=== PATIENT | female | born 1955 | race Caucasian/White ===

== ENCOUNTER → 2019-09-29 | Outpatient (CLI) | payer BC ==
--- NOTE | 2019-09-30 16:00 | RAD ---
DATE: 09/29/2019 10:37 AM EXAM: MAMMO IVANA SCREENING BILATERAL HISTORY: Screening COMPARISON: 04/27/2018 Bilateral CC and MLO views of the breasts were performed. Bilateral breast tomosynthesis was performed in CC and MLO projections. This study was interpreted with the benefit of Computerized Aided Detection (CAD). FINDINGS: Breast Density: SCATTERED The breast parenchyma shows scattered fibroglandular densities. Breast parenchyma level B No suspicious masses, microcalcifications or architectural distortion is present to suggest malignancy in either breast. The visualized axillae are unremarkable. IMPRESSION: No mammographic evidence of malignancy. BI-RADS CATEGORY: 1 NEGATIVE RECOMMENDED FOLLOW-UP: 12M 12 MONTH FOLLOW-UP Annual screening mammography is recommended, unless clinically indicated sooner based on symptoms or change in physical exam. PQRS compliance statement: Patient information was entered into a reminder system with a target due date for the next mammogram. Mammography is a sensitive method for finding small breast cancers, but it does not detect them all and is not a substitute for careful clinical examination. A negative mammogram does not negate a clinically suspicious finding and should not result in delay in biopsying a clinically suspicious abnormality. "Our facility is accredited by the [employer] Mammography Program."
== END | disposition home or self-care (01) ==
LOC: MAMMO 10:23
PROVIDERS: ATTEND Physician Assistant
DX: Z12.31 Encounter for screening mammogram for malignant neoplasm of breast (principal)
CPT/HCPCS: 77063; 77067

== ENCOUNTER 2020-01-30 19:37 | Emergency (ER) | payer MEDICARE ==
[~2020-01-30] VITALS: Ht 345.4 cm; Wt 84.5 kg
[2020-01-30] MEDS ORDERED: KETOROLAC 60 MG/2 ML VIAL. IM ONE (20:00)
--- NOTE | 2020-01-30 20:26 | PHYS DOC ---
Past History Past Medical History: Pneumonia Past Surgical History: Hysterectomy, Knee Replacement Alcohol Use: Rarely Adult General Chief Complaint Chief Complaint: RIB PAIN HPI HPI Patient is a 64-year-old female presents emergency department today with complaints of right lateral rib pain on the lower side after coughing very hard. Patient states that she was diagnosed with Covid 19 virus this past Friday and also diagnosed with bilateral lower lobe pneumonia in which her primary care physician started her on both azithromycin and Augmentin, patient states she finished her azithromycin just yesterday and has 2 more days left on her Augmentin antibiotic regimen. Patient states that when she coughed she felt an immediate pop on the right side of her lower ribs and states that when she coughs now she feels a 10/10 1-10 pain scale otherwise she is feeling a constant 5/10 1-10 pain scale. Patient states she has not taken anything for this pain, patient denies any other ailments, chest pains, shortness of breath, chest palpitations, fevers or chills, nausea, vomiting, or diarrhea or constipation. Denies any diaphoretic episodes or feelings of dizziness. Patient denies any other physical ailments or physical problems. Review of Systems Review of Systems 14 body systems of review of systems have been reviewed. See HPI for pertinent positives and negative responses, otherwise all other systems are negative, nonpertinent or noncontributory. Current Medications Current Medications Patient states she takes a statin but does not know the dose, states that she takes bupropion and paroxetine for depression, and tramadol for chronic knee pains. Current Medications Medications (Trade) Dose Ordered Sig/Pastor Start Time Stop Time Status Last Admin Dose Admin Ketorolac Tromethamine (Toradol Im) 60 mg 1X ONCE 01/30/20 20:00 01/30/20 20:09 DC 01/30/20 20:00 60 MG Allergies Allergies Allergies Coded Allergies Type Severity Reaction Last Updated Verified codeine Allergy Unknown Nausea 01/30/20 Yes Physical Exam Physical Exam Constitutional: Well developed, well nourished, no acute distress, non-toxic appearance. HENT: Normocephalic, atraumatic, bilateral external ears normal, oropharynx moist, no oral exudates, nose normal. Eyes: PERRLA, EOMI, conjunctiva normal, no discharge. Neck: Normal range of motion, no tenderness, supple, no stridor. Cardiovascular:Heart rate regular rhythm, no murmur, heart sounds S1-S2. Lungs & Thorax: Bilateral breath sounds clear to auscultation all lung martinez. Abdomen: Bowel sounds normal, soft, no tenderness, no masses, no pulsatile masses. Skin: Warm, dry, no erythema, no rash. Back: No tenderness, no CVA tenderness. Extremities: No tenderness, no cyanosis, no clubbing, ROM intact, no edema. Neurologic: Alert and oriented X 3, normal motor function, normal sensory function, no focal deficits noted. Psychologic: Affect normal, judgement normal, mood normal Musculoskeletal: Increased pain to palpation at lateral aspect #12 rib on right, no bruising noted, no crepitus noted, patient reports 10/10 pain with palpation otherwise reports a constant 5/10 specific to the right lateral #12 rib where she felt the popping sensation when she coughed very hard earlier today.. Current Patient Data Vital Signs Vital Signs Date Time Temp Pulse Resp B/P (MAP) Pulse Ox O2 Delivery O2 Flow Rate FiO2 01/30/20 19:48 98.0 67 16 157/84 (108) 99 Room Air EKG EKG [] Radiology/Procedures Radiology/Procedures STATUS: REG ER ORD. PHYSICIAN: DIDIER SHEA APRN REASON: RIB DISCOMFORT AFTER HARD COUGH WITH HX PNEUMONIA BEING TREATED PROCEDURE: RIBS RIGHT AND PA CHEST Exam: Right RIBS with PA chest INDICATION: Discomfort after heart cough TECHNIQUE: Frontal view of the chest with frontal and oblique views of the right ribs Comparisons: None FINDINGS: The cardiomediastinal silhouette and pulmonary vessels are within normal limits. Strandy opacities at the lung bases bilaterally. No rib fracture fracture. IMPRESSION: 1. Patchy airspace disease at lung bases bilaterally. 2. No displaced rib fracture. Electronically signed by: Christina Nugent MD (01/30/2020 8:35 PM) [facility] DICTATED AND SIGNED BY: CHRISTINA NUGENT MD DATE: 01/30/202032 CC: DIDIER SHEA APRN; EMERGENCY,DEPARTMENT; BRENNAN VIZCARRA ~MTH0 0 Heart Score Risk Factors: Risk Factors: DM, Current or recent (<one month) smoker, HTN, HLP, family history of CAD, obesity. Risk Scores: Risk Factors: DM, Current or recent (<one month) smoker, HTN, HLP, family history of CAD, obesity. Course & Med Decision Making Course & Med Decision Making Pertinent Labs and Imaging studies reviewed. (See chart for details) 64-year-old female presents emergency department with complaints of a sudden onset of right lateral rib pain where she felt a popping sensation after coughing very hard. Patient states that she was recently diagnosed with COVID- 19 virus and bilateral pneumonia and was started on Zithromax and Augmentin antibiotics. Patient states that she had been coughing very hard trying to bring up sputum when she felt her rib pop today. Patient did not take anything for the pain. Physical examination was unremarkable for any cardiac event or pulmonary infectious process, however her right #12 rib on the most lateral aspect was painful to palpation, there was no crepitus or sub cutaneous air noted, x-ray rib series was read negative for fracture of ribs however still noted patchy infiltrates without effusions, patient was given 60 mg of IM Toradol, upon reevaluation patient appeared much more comfortable, stated that her pain was a 0/10 on a 1-10 pain scale also stated that when she coughs hard her pain only rises to a 4/10 on a 1-10 pain scale. Discussed with patient she will be given a prescription for 600 mg ibuprofen to be taken up to 3 times a day as needed as needed for pain, patient gave verbal understanding of discharge home instructions, home prescriptions, will keep her follow-up appointments with her doctor to evaluate her COVID-19 virus and pneumonia progress. Patient had no further questions or concerns, patient discharged home without incident. Diagnosis right lateral rib pain, COVID-19 positive, on antibiotic treatment for community-acquired pneumonia. Dragon Disclaimer Dragon Disclaimer This electronic medical record was generated, in whole or in part, using a voice recognition dictation system. Departure Departure: Impression: Primary Impression: Rib pain on right side Additional Impressions: Pneumonia COVID-19 Disposition: 01 DC HOME SELF CARE/HOMELESS Condition: IMPROVED Referrals: BRENNAN VIZCARRA (PCP) Additional Instructions: Your rib discomfort on the right side has been evaluated with x-ray and read by a radiologist, there is no acute fractures noted, please continue to take your home medications as directed by your doctor for your pneumonia and treatment of your COVID-19 diagnosis, please return to the emergency department for any worsening symptoms or other concerns. You were given 60 mg of Toradol IM in the emergency department which seemed to relieve your pain. I am going to prescribe you 600 mg of ibuprofen that you can take up to 3 times a day for discomfort. Please follow-up with your doctor soon and keep all of your doctor appointments. EMERGENCY DEPARTMENT GENERAL DISCHARGE INSTRUCTIONS Thank you for coming to [facility] (ED) today and trusting us with you care. We trust that you had a positivie experience in our Emergency Department. If you wish to speak to the department management, you may call the director at [phone]. YOUR FOLLOW UP INSTRUCTIONS ARE FOLLOWS: 1. Do you have a private Doctor? If you do not have a private doctor, please ask for a resource list of physicians or clinics that may be able to assist you with follow up care. 2. The Emergency Physician has interpreted your x-rays. The X-Ray specialist will also review them. If there is a change in the findings, you will be notified in 48 hours when at all possible. 3. A lab test or culture has been done, your results will be reviewed and you will be notified if you need a change in treatment. ADDITIONAL INSTRUCTIONS AND INFORMATION: 1. Your care today has been supervised by a physician who is specially trained in emergency care. Many problems require more than one evaluation for a complete diagnosis and treatment. We recommend that you schedule your follow up appointment as recommended to ensure complete treatment of you illness or injury. If you are unable to obtain follow up care and continue to have a problem, or if your condition worsens, we recommend that you return to the ED. 2. We are not able to safely determine your condition over the phone nor are we able to give sound medical advice over the phone. For these safety reasons, if you call for medical advice we will ask you to come to the ED for further evaluation. 3. If you have any questions regarding these discharge instructions please call the ED at [phone]. SAFETY INFORMATION: In the interest of safety, wellness, and injury prevention; we encourage you to wear your sealbelt, if you smoke; quite smoking, and we encourage family to use a protective helmet for bicycling and other sporting events that present an increased risk for head injury. IF YOUR SYMPTOMS WORSEN OR NEW SYMPTOMS DEVELOP, OR YOU HAVE CONCERNS ABOUT YOUR CONDITION; OR IF YOUR CONDITION WORSENS WHILE YOU ARE WAITING FOR YOUR FOLLOW UP APPOINTMENT; EITHER CONTACT YOUR PRIMARY CARE DOCTOR, THE PHYSICIAN WHOSE NAME AND NUMBER YOU WERE GIVEN, OR RETURN TO THE ED IMMEDIATELY. Scripts Ibuprofen (IBUPROFEN) 600 Mg Tablet 600 MG PO PRN Q8HRS PRN for PAIN, #30 TAB 0 Refills Prov: DIDIER SHEA APRN 01/30/20 Problem Qualifiers Additional Impressions: Pneumonia Pneumonia type: due to unspecified organism Laterality: unspecified laterality Lung location: lower lobe of lung Qualified Codes: J18.9 - Pneumonia, unspecified organism DIDIER SHEA APRN Jan 30, 2020 20:26
--- NOTE | 2020-01-30 20:38 | RAD ---
Exam: Right RIBS with PA chest INDICATION: Discomfort after heart cough TECHNIQUE: Frontal view of the chest with frontal and oblique views of the right ribs Comparisons: None FINDINGS: The cardiomediastinal silhouette and pulmonary vessels are within normal limits. Strandy opacities at the lung bases bilaterally. No rib fracture fracture. IMPRESSION: 1. Patchy airspace disease at lung bases bilaterally. 2. No displaced rib fracture. Electronically signed by: Christina Buchanan MD (01/30/2020 8:35 PM) [facility]
[2020-01-30 20:53] VITALS: BP 137/82
[2020-01-30] MEDS ORDERED: IBUP600T16 PO (21:16)
== END 2020-01-30 21:26 | disposition home or self-care (01) ==
LOC: ER 19:37
DX: U07.1 COVID-19 (principal); J12.89 Other viral pneumonia; R07.81 Pleurodynia; Z88.5 Allergy status to narcotic agent
CPT/HCPCS: 71101; 96372; 99283; J1885